=== PATIENT | female | born 2000 | race Two or more races ===

== ENCOUNTER 2023-03-22 16:49 | Emergency (ER) | payer SELFPAY ==
[2023-03-22] MEDS ORDERED: Lidocaine 1% (PF) 30 ML VIAL ONE (17:19)
== END 2023-03-22 19:07 | disposition home or self-care (01) ==
LOC: CSHERS 16:49
DX: S91.201A Unspecified open wound of right great toe with damage to nail, initial encounter (principal); W22.8XXA Striking against or struck by other objects, initial encounter
CPT/HCPCS: 11730; J2001